=== PATIENT | male | born 1975 | race Caucasian/White ===

== ENCOUNTER 2016-10-18 11:36 | Emergency (ER) | payer SELFPAY ==
[2016-10-18 11:51] VITALS: O2SAT 97
[2016-10-18] MEDS ORDERED: TORAdol 30 mg Injection IM ONE (12:29)
[2016-10-18] MEDS ORDERED: Adacel Vial IM ONE ×2 (12:30→12:40)
--- NOTE | 2016-10-18 12:33 | ERPHSYRPT ---
- History of Present Illness Time Seen by Provider: 10/18/16 12:28 Source: patient Exam Limitations: no limitations (he) Patient Subjective Stated Complaint: was changing tire and mandy slipped out Triage Nursing Assessment: pt has laceration to index finger and abrasion to middle finger, small amt of bleeding noted, pressure dressing applied Physician History: The patient is a right-handed 41-year-old male who complains of cutting and hurting the knuckle on the his index finger on the right hand. He was using a scissors mandy while working on an vehicle, when the mandy slipped striking him on the finger. He denies numbness or tingling. He does complain of pain and swelling. His last tetanus vaccination is unknown. His past medical history is unremarkable. Occurred: just prior to arrival Method of Injury: direct blow Quality: constant Severity of Pain-Max: moderate Severity of Pain-Current: moderate Extremities Pain Location: 2nd finger: right Modifying Factors: Improves With: nothing Associated Symptoms: none Allergies/Adverse Reactions: No Known Drug Allergies Allergy (Unverified 10/18/16 11:51) Hx Tetanus, Diphtheria Vaccination/Date Given: No Hx Influenza Vaccination/Date Given: No Hx Pneumococcal Vaccination/Date Given: No Immunizations Up to Date: Yes - Review of Systems Constitutional: No Fever, No Chills Eyes: No Symptoms Ears, Nose, & Throat: No Symptoms Respiratory: No Cough, No Dyspnea Cardiac: No Chest Pain, No Edema, No Syncope Abdominal/Gastrointestinal: No Abdominal Pain, No Nausea, No Vomiting, No Diarrhea Genitourinary Symptoms: No Dysuria Musculoskeletal: Injury Skin: Other (laceration) Neurological: No Dizziness, No Focal Weakness, No Sensory Changes Psychological: No Symptoms Endocrine: No Symptoms Hematologic/Lymphatic: No Symptoms Immunological/Allergic: No Symptoms All Other Systems: Reviewed and Negative - Past Medical History Pertinent Past Medical History: No - Past Surgical History Past Surgical History: No - Social History Smoking Status: Current every day smoker Exposure to second hand smoke: Yes Drug Use: none Patient Lives Alone: Yes - Nursing Vital Signs Nursing Vital Signs: Initial Vital Signs Temperature 98.4 F 10/18/16 11:47 Pulse Rate 82 10/18/16 11:47 Respiratory Rate 16 10/18/16 11:47 Blood Pressure 129/73 10/18/16 11:47 O2 Sat by Pulse Oximetry 97 10/18/16 11:47 Pain Scale Pain Intensity 7 - Physical Exam General Appearance: alert Eyes, Ears, Nose, Throat Exam: moist mucous membranes Neck Exam: non-tender, supple Cardiovascular/Respiratory Exam: chest non-tender, normal breath sounds, regular rate/rhythm, no respiratory distress Abdominal Exam: non-tender, No guarding Back Exam: normal inspection, No vertebral tenderness Shoulder Exam: normal inspection Elbow/Forearm Exam: normal inspection Wrist Exam: normal inspection Hand Exam: laceration, limited ROM, soft tissue tenderness, swelling (index finger of right hand) Neuro/Tendon Exam: normal sensation, normal motor functions Mental Status Exam: alert, oriented x 3, cooperative Skin Exam: laceration (over the IP joint of right index finger. ) SpO2: 97 Oxygen Delivery: Room Air Procedures - Laceration/Wound Repair Right Finger Wound Location: Right, hand (index finger) Wound Length (cm): 2.5 Wound's Depth, Shape: linear Wound Explored: clean Irrigated: No Hibiclens Prep: Yes Anesthesia: digital block, 1% Lidocaine Volume Anesthetic (ccs): 10 Wound Repaired With: sutures Suture Size/Type: 5-0, nylon Number of Sutures: 4 Layer Closure?: No Sterile Dressing Applied?: Yes Splint Applied?: Yes Type of Splint Applied: finger Sling Applied?: No - Radiology Exams Left Hand X-ray Interpretation: Reviewed by me, Teleradiologist Report, Displaced Fracture (tansverse hairline fracture in distal shaft of proximal phalanx of right 2nd digit per Dr Saez.) Ordered Tests: Active Orders 24 hr Category Date Time Status Cold Application STAT Care 10/18/16 12:29 Active Wound Care STAT Care 10/18/16 13:16 Active FINGER(S) Stat Exams 10/18/16 12:29 Completed Medication Summary Discontinued Medications Generic Name Dose Route Start Last Admin Trade Name Freq PRN Reason Stop Dose Admin Diphtheria/Tetanus/Acell Pertussis 0.5 ml 10/18/16 12:30 10/18/16 12:39 Adacel Vial IM 10/18/16 12:31 0.5 ml .ONCE ONE Administration Diphtheria/Tetanus/Acell Pertussis Confirm 10/18/16 12:40 Adacel Vial Administered 10/18/16 12:41 Dose 0.5 ml IM .STK-MED ONE Ketorolac Tromethamine 60 mg 08/14/17 12:29 10/18/16 12:41 Toradol 30 Mg Injection IM 10/18/16 12:30 60 mg STAT ONE Administration Ketorolac Tromethamine Confirm 10/18/16 12:36 Toradol 30 Mg Injection Administered 10/18/16 12:37 Dose 60 mg .ROUTE .STK-MED ONE Lidocaine HCl 10 ml 10/18/16 13:17 Xylocaine 1% Hcl 20 Ml Mdv IJ 10/18/16 13:18 STAT ONE Lidocaine HCl Confirm 10/18/16 13:18 Xylocaine 1% Hcl 20 Ml Mdv Administered 10/18/16 13:19 Dose 5 ml .ROUTE .STK-MED ONE - Progress Progress: unchanged Counseled pt/family regarding: diagnosis, need for follow-up, rad results - Departure Time of Disposition: 13:44 Departure Disposition: Home Clinical Impression: Fracture, finger, open Condition: Stable Critical Care Time: No Referrals: DOCTOR,NO FAMILY [Primary Care Provider] - Instructions: Care for a Laceration After Repair Additional Instructions: You have an open fracture involving the right index finger. The fracture through the bone is a hairline fracture but was still take 6-8 weeks to heal. The laceration was closed with 4 sutures that will need to be removed in 12-14 days. Wear the finger splint until the sutures are removed. You were given a tetanus vaccination in the ER. You were given Toradol 60 mg by IM in the ER. You were given Zosyn 3.375 g by IV in the ER. Take Augmentin 875 twice a day for 10 days. Take naproxen 500 mg every 12 hours as needed for pain. Take Tylenol No. 3 one to 2 tablets every 4-6 hours as needed for pain. Follow-up with your doctor in 12-14 days for suture removal. Prescriptions: Amoxicillin/Potassium Clav [Augmentin 875-125 Tablet] 875 mg PO BID #20 tablet Codeine Phosphate/APAP #3 [Tylenol #3 Tablet] 1 tab PO Q4-6HPRN PRN #10 tablet PRN Reason: Pain Naproxen 500 mg PO BID PRN #30 tablet.
[2016-10-18] MEDS ORDERED: TORAdol 30 mg Injection ONE (12:36)
--- NOTE | 2016-10-18 12:58 | XRAY ---
Indication: Second finger pain following injury. Comparison: None 3 views of the right 2nd finger demonstrates nondisplaced hairline transverse fracture involving the distal shaft of the proximal phalanx with soft tissue swelling. No other bony, articular, or soft tissue abnormalities.
[2016-10-18] MEDS ORDERED: XYLOCAINE 1% HCL 20 ML MDV IJ ONE (13:17)
[2016-10-18] MEDS ORDERED: XYLOCAINE 1% HCL 20 ML MDV ONE (13:18)
[2016-10-18] MEDS ORDERED: Zosyn 3.375GM/100 Ml D5W 3.375 GM/100 ML IVPB IV STA (13:37)
[2016-10-18] MEDS ORDERED: Zosyn 3.375GM/100 Ml D5W 3.375 GM/100 ML IVPB IV ONE (14:07)
[2016-10-18] MEDS ORDERED: BACIGUENT PACKET TP ONE (14:25)
[2016-10-18] MEDS ORDERED: BACIGUENT PACKET ONE (14:27)
[2016-10-18 14:54] VITALS: BP 123/84; PULSE 78
== END 2016-10-18 14:53 | disposition home or self-care (01) ==
LOC: ED 11:36
PROC: 0HQFXZZ Repair Right Hand Skin, External Approach (ICD-10-PCS; principal; 2016-10-18)
DX: S62.600B Fracture of unspecified phalanx of right index finger, initial encounter for open fracture (principal); W45.8XXA Other foreign body or object entering through skin, initial encounter; Y93.89 Activity, other specified
CPT/HCPCS: 12001; 36000; 73140; 90471; 90715; 96365; 96372; 99284; J1885; J2543; A9270-GY

== ENCOUNTER 2017-05-23 16:50 | Emergency (ER) | payer SELFPAY ==
[2017-05-23] MEDS ORDERED: MORPHINE SULFATE 4 MG INJ IV ONE (17:10)
[2017-05-23] MEDS ORDERED: BACIGUENT PACKET TP ONE (17:11)
--- NOTE | 2017-05-23 17:19 | ERPHSYRPT ---
- History of Present Illness Time Seen by Provider: 05/23/17 17:07 Source: patient Exam Limitations: no limitations Patient Subjective Stated Complaint: Pt states "I was moving a piece of metal and it was sharp and went straight through my hand. I pulled it back out but it really hurts." Triage Nursing Assessment: PT alert and oriented X 3, skin pwd. PT ambulates with an upright steady gait, able to speak in clear full sentences. PT left hand has two puncture sites, one on the palm and one on the dorsal side of hand. CSM X 4 Physician History: This is a 42-year-old white male who states she is previously healthy he arrives with complaint that he apparently pushed a piece of metal through his hand while trying to push metal. He states he did it at work about an hour before he got here he states he pulled the metal out. He has a puncture wound on his dorsal left hand overlying the second medical carpal he also has a puncture wound to his left thenar eminence. He complains of pain in his left hand. Past medical history is negative. Patient states his last tetanus was 3 months ago Occurred: just prior to arrival (one hour prior to arrival) Method of Injury: other (patient states that he was pushing on a piece of metal and it went through his hand) Severity of Pain-Max: moderate Severity of Pain-Current: moderate Extremities Pain Location: hand: left Modifying Factors: Improves With: nothing Associated Symptoms: none Allergies/Adverse Reactions: acetaminophen [From Tylenol-Codeine #3] Adverse Reaction (Verified 05/23/17 17: 06) sick codeine [From Tylenol-Codeine #3] Adverse Reaction (Verified 05/23/17 17:06) sick Hx Tetanus, Diphtheria Vaccination/Date Given: Yes Hx Influenza Vaccination/Date Given: No Hx Pneumococcal Vaccination/Date Given: No Immunizations Up to Date: Yes - Review of Systems Constitutional: No Fever, No Chills Eyes: No Symptoms Ears, Nose, & Throat: No Symptoms Respiratory: No Cough, No Dyspnea Cardiac: No Chest Pain, No Edema, No Syncope Abdominal/Gastrointestinal: No Abdominal Pain, No Nausea, No Vomiting, No Diarrhea Genitourinary Symptoms: No Dysuria Musculoskeletal: Other (Left hand with small puncture wound overlying the thenar eminence, and a small puncture wound dorsally overlying the second metacarpal) - Past Medical History Pertinent Past Medical History: No - Past Surgical History Past Surgical History: No - Social History Smoking Status: Current every day smoker How long have you smoked: years Exposure to second hand smoke: Yes Drug Use: none Patient Lives Alone: No - Nursing Vital Signs Nursing Vital Signs: Initial Vital Signs Temperature 98.1 F 05/23/17 16:58 Pulse Rate 72 05/23/17 16:58 Respiratory Rate 20 05/23/17 16:58 Blood Pressure 160/104 05/23/17 16:58 O2 Sat by Pulse Oximetry 97 05/23/17 16:58 Pain Scale Pain Intensity 10 - Physical Exam General Appearance: mild distress Eyes, Ears, Nose, Throat Exam: moist mucous membranes Neck Exam: non-tender, supple Cardiovascular/Respiratory Exam: chest non-tender, normal breath sounds, regular rate/rhythm, no respiratory distress Abdominal Exam: non-tender, No guarding Back Exam: normal inspection, No vertebral tenderness Shoulder Exam: normal inspection, non-tender, no evidence of injury, normal ROM Elbow/Forearm Exam: normal inspection, non-tender, no evidence of injury, normal ROM Wrist Exam: normal inspection, non-tender, no evidence of injury, normal ROM Hand Exam: No normal inspection (left hand with puncture wound overlying the thenar eminence, volar aspect and a puncture wound overlying the dorsal left second metacarpal decreased range of motion left hand secondary to pain, good capillary refill all fingers sensation intact to all fingers) Neuro/Tendon Exam: normal sensation, normal motor functions Mental Status Exam: alert, oriented x 3, cooperative Skin Exam: other (Small puncture wound overlying the left thenar eminence and dorsal left second metacarpal) SpO2 Interpretation: normal (97%) SpO2: 97 Oxygen Delivery: Room Air - Course Nursing assessment & vital signs reviewed: Yes - Radiology Exams Left Hand X-ray Interpretation: Interpreted by me, Other (questionable minute foreign bodies soft tissues left hand no osseous abnormality.) Ordered Tests: Active Orders 24 hr Category Date Time Status Wound Care STAT Care 05/23/17 17:11 Active HAND (MINIMUM 3 VIEWS) Stat Exams 05/23/17 17:22 Taken Medication Summary Generic Name Dose Route Start Last Admin Trade Name Freq PRN Reason Stop Dose Admin Cefazolin Sodium 3 g/ Sodium 50 mls @ 100 mls/hr 05/23/17 17:45 Chloride IV 06/22/17 17:44 ONCALLTOOR CYNTHIA Discontinued Medications Generic Name Dose Route Start Last Admin Trade Name Eugenio PRN Reason Stop Dose Admin Bacitracin 0.9 gm 05/23/17 17:11 05/23/17 17:31 Baciguent Packet TP 05/23/17 17:12 0.9 gm STAT ONE Administration Bacitracin Confirm 05/23/17 17:29 Baciguent Packet Administered 05/23/17 17:30 Dose 1 gm .ROUTE .STK-MED ONE Morphine Sulfate 4 mg 05/23/17 17:10 05/23/17 17:31 Morphine Sulfate 4 Mg Inj IV 05/23/17 17:11 4 mg STAT ONE Administration Morphine Sulfate Confirm 05/23/17 17:29 Morphine Sulfate 4 Mg Inj Administered 05/23/17 17:30 Dose 4 mg .ROUTE .STK-MED ONE - Progress Progress: improved Progress Note: 05/23/17 17:45 This is a 42-year-old white male he arrives with complaint of pain in his left hand since one hour prior to arrival patient states he was trying to push piece of metal on the floor and they ended up pushing a metal through his hand. He states that this metal went completely through his hand going through the center eminence and exiting overlying the left second metacarpal. Patient has 2 small puncture wounds on his left hand when overlying the thenar eminence on the volar surface and one overlying the dorsal second metacarpal. Patient with the pain with movement of his hand and pain with palpation in the area. Patient has an x-ray of the left hand which she shows questionable minute foreign bodies versus artifact in the soft tissue of his left hand. Patient is up-to-date on his tetanus. Patient was given morphine 4 mg IM will give patient Kefzol 1 g IM. Patient is soaking the left hand he will have the area cleansed carefully. Will plan to discharge patient with Kefzol 500 mg orally every 6 hours 7 days, [place] 5/325 #12 one orally every 4-6 hours as needed for pain. Patient is to follow-up with [facility] orthoclinic tomorrow am, (or his family doctor) 05/23/17 17:59 - Departure Time of Disposition: 18:07 Departure Disposition: Home Clinical Impression: Puncture wound of left hand Qualifiers: Encounter type: sequela Foreign body presence: unspecified Qualified Code(s): S61.432S - Puncture wound without foreign body of left hand, sequela Condition: Fair Critical Care Time: No Referrals: DOCTOR,NO FAMILY [Primary Care Provider] - Additional Instructions: Return home. Cold packs and elevate your left hand 24-48 hours. Clean puncture wounds on your left hand with warm soapy water and apply bacitracin daily. Kefzol 500 mg orally every 6 hours for 7 days. [place] as prescribed. Follow-up with [facility] ortho clinic tomorrow morning( or your company doctor return for acute distress or for severe symptoms.) Prescriptions: Cephalexin Mh 500 mg [Keflex 500 mg] 500 mg PO Q6H #28 capsule Hydrocodone/Acetaminophen [[place] 5-325 Tablet] 1 tab PO Q4-6HPRN PRN #12 tablet MDD 6 PRN Reason: Pain
[2017-05-23] MEDS ORDERED: BACIGUENT PACKET ONE (17:29)
[2017-05-23] MEDS ORDERED: MORPHINE SULFATE 4 MG INJ ONE (17:29)
[2017-05-23] MEDS ORDERED: KEFZOL 1 GM** 3 G in Sodium Chloride 0.9% 50 ML 50 ML IV SCH (17:45)
[2017-05-23] MEDS ORDERED: KEFZOL IV ONE (18:10)
[2017-05-23] MEDS: KEFZOL 1 GM/50 ML PREMIX** 1 GM/50 ML IVPB IV STA ×2 (18:22→18:40)
[2017-05-23] MEDS ORDERED: KEFZOL 1 GM IM ONE (18:26)
[2017-05-23] MEDS ORDERED: KEFZOL 1 GM ONE (18:29)
[2017-05-23 19:10] VITALS: BP 134/78; PULSE 78; O2SAT 99
--- NOTE | 2017-05-24 08:37 | XRAY ---
Indication: Foreign body. Comparison: None 3 views of the left hand demonstrates a few tiny punctate soft tissue foreign bodies between the first and second metacarpals. Also soft tissue swelling and tiny air bubbles concerning for gas-forming infection. No other bony, articular, or soft tissue abnormalities.
== END 2017-05-23 19:11 | disposition home or self-care (01) ==
LOC: ED 16:50
DX: S61.432S Puncture wound without foreign body of left hand, sequela (principal); M79.642 Pain in left hand; Z72.0 Tobacco use; W45.8XXA Other foreign body or object entering through skin, initial encounter; W22.8XXA Striking against or struck by other objects, initial encounter; Y93.89 Activity, other specified; Y92.89 Other specified places as the place of occurrence of the external cause; Y99.0 Civilian activity done for income or pay
CPT/HCPCS: 73130; 96372; 99284; J0690; J2270; A9270-GY